=== PATIENT | female | born 1960 | race Caucasian/White ===

== ENCOUNTER 2017-02-23 07:47 | Observation (INO) | payer OTHER ==
[2017-02-23] MEDS ORDERED: ceFAZolin 2 GM/DEXTROSE 100 ML IV ONE (08:19)
[2017-02-23] MEDS ORDERED: LR 1,000 ML IV ONE (08:21)
[2017-02-23 09:09] LABS: % IMMATURE GRANULYOCYTES 0.3 % (0.0-1.1); ABSOLUTE IMMATURE GRANULOCYTES 0.02 10^3/uL (0.00-0.10); ADD DIFF? NO; ADD MORPH? NO; ADD SCAN? NO; ATYPICAL LYMPHOCYTE FLAG 10 (0-99); FRAGMENT RBC FLAG 0 (0-99); HEMATOCRIT 41.6 % (38.0-47.0); HEMOGLOBIN 14.1 g/dL (12.6-16.3); LEFT SHIFT FLG 0 (0-99); LIPEMIA HEMOLYSIS FLAG 90 (0-99); MEAN CELL HEMOGLOBIN 30.1 pg (27.9-34.1); MEAN CELL HEMOGLOBIN CONCENTR. 33.9 g/dL (32.4-36.7); MEAN CELL VOLUME 88.7 fL (81.5-99.8); MEAN PLATELET VOLUME 10.4 fL (8.7-11.7); PLATELET CLUMPS FLAG 0 (0-99); PLATELET COUNT 312 10^3/uL (150-400); RED BLOOD CELL COUNT 4.69 10^6/uL (4.18-5.33); RED CELL DISTRIBUTION WIDTH 12.8 % (11.5-15.2)
[2017-02-23 09:32] LABS: ANION GAP 13 mEq/L (8-16); CALCIUM 9.7 mg/dL (8.5-10.4); CARBON DIOXIDE 25 mEq/l (22-31); CHLORIDE 105 mEq/L (97-110); CREATININE 0.6 mg/dL (0.6-1.0); GLOMERULAR FILTRATION RATE > 60; GLUCOSE 93 mg/dL (70-100); POTASSIUM 3.6 mEq/L (3.5-5.2); SODIUM 143 mEq/L (134-144)
[2017-02-23] MEDS ORDERED: GENTAMICIN SULFATE 80 MG/2 ML VIAL ONE (10:04)
[2017-02-23] MEDS ORDERED: BUPIVACAINE 0.25% 30 ML SDV ONE ×2 (10:04→14:10)
[2017-02-23] MEDS ORDERED: ceFAZolin 1 GM/5 ML SYR ONE (10:04)
[2017-02-23] MEDS ORDERED: METHYLENE BLUE 0.5% 50 MG/10 ML AMP ONE (10:04)
[2017-02-23] MEDS ORDERED: BACITRACIN 50,000 UNITS/10 ML SYR IRR ONE (10:05)
--- NOTE | 2017-02-23 11:17 | PDHPUP ---
History & Physical Update H&P update statement: This history and physical update is based on an assessment of the patient which was completed after admission or registration (within 24 hours), but prior to the surgery/procedure.
[2017-02-23] MEDS ORDERED: MIDAZOLAM 2 MG/2 ML VIAL IVP ONE (11:32)
--- NOTE | 2017-02-23 11:32 | PDANEPAE ---
ANE History of Present Illness b mastectomy ANE Past Medical History - Cardiovascular History Hx Hypertension: Yes Hx Arrhythmias: No Hx Chest Pain: No Hx Coronary Artery / Peripheral Vascular Disease: No Hx CHF / Valvular Disease: No Hx Palpitations: No - Pulmonary History Hx COPD: No Hx Asthma/Reactive Airway Disease: No Hx Recent Upper Respiratory Infection: No Hx Oxygen in Use at Home: No Hx Sleep Apnea: No Sleep Apnea Screening Result - Last Documented: Negative - Neurologic History Hx Cerebrovascular Accident: No Hx Seizures: No Hx Dementia: No Neurologic History Comment: MIGRAINES - Endocrine History Hx Diabetes: No - Renal History Hx Renal Disorders: No - Liver History Hx Hepatic Disorders: No - Neurological & Psychiatric Hx Hx Neurological and Psychiatric Disorders: No - Cancer History Hx Cancer: Yes Cancer History Comment: BREAST - Congenital Disorder History Hx Congenital Disorders: No - GI History Hx Gastrointestinal Disorders: No - Other Health History Other Health History: NEG - Chronic Pain History Chronic Pain: No - Surgical History Prior Surgeries: D&C. BREAST BX ANE Review of Systems - Exercise capacity Exercise capacity: >=4 METS METS (RN): 4 METS - Systems Constitutional: Reports: no symptoms Cardiac: Reports: no symptoms Respiratory: Reports: no symptoms Muscolosketal: Reports: no symptoms Skin: Reports: no symptoms Neurological: Reports: no symptoms ANE Patient History - Allergies Allergies/Adverse Reactions: Penicillins Allergy (Mild, Verified 02/09/17 20:17) Rash amlodipine Allergy (Verified 02/14/17 11:26) DIZZINESS lisinopril Allergy (Verified 02/14/17 11:26) DIZZINESS verapamil Allergy (Verified 02/14/17 11:26) DIZZINESS - Home Medications Home Medications: Frovatriptan Succinate [Frova] 2.5 mg PO DAILY PRN 02/09/17 [Last Taken Unknown] Herbals/Supplements -Info Only 1 ea PO DAILY 02/09/17 [Last Taken Unknown] Hydrochlorothiazide [HCTZ (*)] 12.5 mg PO DAILY 02/09/17 [Last Taken 02/22/17 08 :00] - NPO status NPO Status: no food or drink >8 hours NPO Since - Liquids (Date): 02/22/17 NPO Since - Liquids (Time): 20:00 NPO Since - Solids (Date): 02/22/17 NPO Since - Solids (Time): 20:00 - Anes Hx Anes Hx: no prior problems - Smoking Hx Smoking Status: Never smoked - Alcohol Use Alcohol Use: None - Family Anes Hx Family Anes Hx: none Family Hx Anesthesia Complications: NEG ANE Labs/Vital Signs - Labs Result Diagrams: 02/23/17 08:30 02/23/17 08:30 - Vital Signs Blood Pressure: 171/89 Heart Rate: 84 Respiratory Rate: 16 O2 Sat (%): 94 Height: 160.02 cm Weight: 58.06 kg ANE Physical Exam - Airway Neck exam: FROM Mallampati Score: Class 1 Mouth exam: normal dental/mouth exam - Pulmonary Pulmonary: no respiratory distress - Cardiovascular Cardiovascular: regular rate and rhythym - ASA Status ASA Status: II ANE Anesthesia Plan Anesthesia Plan: general endotracheal anesthesia
[2017-02-23] MEDS ORDERED: MIDAZOLAM 2 MG/2 ML VIAL ONE (11:36)
[2017-02-23] MEDS ORDERED: LIDOCAINE 2% 5 ML SDV ONE (11:37)
[2017-02-23] MEDS ORDERED: ROCURONIUM 50 MG/5 ML VIAL ONE (11:37)
[2017-02-23] MEDS ORDERED: PROPOFOL 200 MG/20 ML VIAL ONE (11:38)
[2017-02-23] MEDS ORDERED: fentaNYL 100 MCG/2 ML INJ ONE ×4 (11:38→15:44)
[2017-02-23] MEDS ORDERED: DEXAMETHASONE 4 MG/ML VIAL ONE ×2 (11:55)
[2017-02-23] MEDS ORDERED: TEMAZEPAM 15 MG CAP PO PRN (13:24)
[2017-02-23] MEDS ORDERED: PROMETHAZINE HCL 25 MG/ML INJ IVP PRN ×2 (13:24→14:43)
[2017-02-23] MEDS ORDERED: LR 1,000 ML IV SCH (13:30)
[2017-02-23] MEDS ORDERED: DIAZEPAM 5 MG TAB PO PRN (14:34)
[2017-02-23] MEDS ORDERED: FROVATRIPTAN SUCCINATE 2.5 MG PO PRN (14:35)
[2017-02-23] MEDS ORDERED: HYDROmorphONE/DILAUDID 1 MG/ML SYR IVP PRN (14:43)
[2017-02-23] MEDS ORDERED: ONDANSETRON 4 MG/2 ML VIAL IVP PRN (14:43)
[2017-02-23] MEDS ORDERED: fentaNYL 100 MCG/2 ML INJ IVP PRN (14:43)
[2017-02-23] MEDS ORDERED: HYDROCODONE/APAP 5/325 TAB PO PRN (14:43)
[2017-02-23] MEDS ORDERED: MEPERIDINE 25 MG/ML SYR IVP PRN (14:43)
[2017-02-23] MEDS ORDERED: NALOXONE HCL 0.4 MG/ML INJ IVP PRN (14:43)
[2017-02-23] MEDS ORDERED: ceFAZolin 1 GM VIAL ONE ×2 (14:47)
--- NOTE | 2017-02-23 14:58 | POSTOPPROG ---
Post Op Note Date of Operation: 02/23/17 Surgeon: Shaun Pace (, FACS) Supervisor Multifocal Lens: Jennifer Hook RN-FA Anesthesiologist: Torres Lester MD Anesthesia: GET(General Endotracheal) Pre-op Diagnosis: left breast lobular CA Post-op Diagnosis: same Procedure: bilateral total mastectomy, sentinel node mapping and superficial ALND Findings: 4/4 sentinel nodes negative-right, 2/2 sentinel nodes negative-left Inf/Abcess present in the surg proc area at time of surgery?: No Complications: none
--- NOTE | 2017-02-23 15:25 | POSTANESTH ---
Post Anesthetic Evaluation Cardiovascular Status: Normal, Stable Respiratory Status: Normal, Stable Level of Consciousness/Mental Status: Can Participate in Eval Pain Control: Adequate, Prn Tx Ordered Nausea/Vomiting Control: Adequate, Prn Tx Ordered Complications Possibly Related to Anesthesia: None Noted
[2017-02-23] MEDS: fentaNYL 100 MCG/2 ML INJ IVP PRN ×2 (15:46→15:54)
[2017-02-23] MEDS ORDERED: HYDROmorphONE/DILAUDID 1 MG/ML SYR ONE (16:07)
[2017-02-23] MEDS: HYDROmorphONE/DILAUDID 1 MG/ML SYR IVP PRN ×6 (16:08→22:53)
[2017-02-23] MEDS: ONDANSETRON 4 MG/2 ML VIAL IVP PRN (19:21)
[2017-02-23] MEDS: HYDROCODONE/APAP 5/325 TAB PO PRN (21:38)
[2017-02-23] MEDS ORDERED: ceFAZolin 2 GM/DEXTROSE 100 ML IV SCH (23:00)
[2017-02-23] MEDS: ceFAZolin 2 GM/DEXTROSE 100 ML IV SCH (23:10)
[2017-02-24] MEDS: HYDROCODONE/APAP 5/325 TAB PO PRN ×4 (01:44→12:53)
[2017-02-24] MEDS: ceFAZolin 2 GM/DEXTROSE 100 ML IV SCH (06:04)
[2017-02-24 06:16] LABS: % IMMATURE GRANULYOCYTES 0.4 % (0.0-1.1); ABSOLUTE IMMATURE GRANULOCYTES 0.06 10^3/uL (0.00-0.10); ADD DIFF? NO; ADD MORPH? NO; ADD SCAN? NO; ATYPICAL LYMPHOCYTE FLAG 0 (0-99); FRAGMENT RBC FLAG 0 (0-99); HEMATOCRIT 37.1 % (38.0-47.0); HEMOGLOBIN 12.5 g/dL (12.6-16.3); LEFT SHIFT FLG 0 (0-99); LIPEMIA HEMOLYSIS FLAG 80 (0-99); MEAN CELL HEMOGLOBIN CONCENTR. 33.7 g/dL (32.4-36.7); MEAN PLATELET VOLUME 10.2 fL (8.7-11.7); PLATELET CLUMPS FLAG 0 (0-99); PLATELET COUNT 320 10^3/uL (150-400); RED BLOOD CELL COUNT 4.17 10^6/uL (4.18-5.33)
--- NOTE | 2017-02-24 06:27 | GOP ---
[f rep st] OPERATIVE REPORT DATE OF OPERATION: 02/23/2017 SURGEON: Addis Simon Jr., MD [place] SPECIALIST: Ralph Florentino CST, by surgeon request (skilled religious assistant was necessary due to the technical complexity of the case and desire to minimize patient anesthesia time). ANESTHESIA: Patient had general inhalational anesthetic. ANESTHESIOLOGIST: Dr. Torres Lester. PREOPERATIVE DIAGNOSIS: Left breast cancer. POSTOPERATIVE DIAGNOSIS: Left breast cancer. PROCEDURE PERFORMED: Immediate bilateral breast reconstruction utilizing tissue expanders and human dermal allograft. FINDINGS: ESTIMATED BLOOD LOSS: During reconstruction was 30 cc. INDICATIONS: The patient is a delightful young woman referred from Dr. Shaun Pace, after a left b reast cancer diagnosis. She elected to undergo bilateral mastectomies as part of her treatment and was deemed an excellent candidate for staged reconstruction, utilizing tissue expanders, implants an d autologous fat grafting. She came to the operating room in conjunction with Dr. Pace today for th e mastectomy and placement of tissue expanders. DESCRIPTION OF PROCEDURE: After the risks and benefits of the procedure were explained to the patie nt, highlighting bleeding, infection, potential need to remove tissue chief controller center, asymmetry, discomfor t, damage to the vessels or nerves, and need for additional procedures, formal operative consent was obtained. She was taken to the operating room, by Dr. Pace, where uncomplicated bilateral total ma stectomies with bilateral negative sentinel lymph node mapping was performed. At the completion of the mastectomy portion the procedure, the patient was redraped with fresh towels, fresh instrumentat ion, electrocautery and suction were also employed. Procedure began by irrigating the pockets copiously with normal saline. Meticulous hemostasis was a ssured. The pockets were then rinsed with triple antibiotic saline. A plane was then developed demetrio eath the pectoralis major muscle, beginning with the division of the inferior medial origin of the m uscle from the chest wall. The pocket proceeded beneath the serratus anterior muscle until the foot print of the tissue chief controller center had been completely dissected. Identical procedure was performed on th e contralateral side. The pockets were then irrigated with triple antibiotic saline. Hemostasis ag ain assured. Tissue expanders, Allergan 133-13-T550 cc devices were thoroughly tested, evacuated of air, and filled with 150 cc of injectable saline. They were then placed in the submuscular pocket and sutured down to the chest wall in the correct anatomic position, using 2-0 PDS suture. Two shee ts of AlloDerm acellular dermis graft were triple rinsed in normal saline, soaked in triple antibiot ic saline, and then used to reconstruct the inferior pole of both breasts. They were trimmed to fit the inferior pole and sutured into place using 2-0 Vicryl suture. The pockets were irrigated a fin al time with triple antibiotic saline. Hemostasis again assured a final time, 15 round drains were placed and the skin edges were examined. They were felt to be healthy and viable. Two-layer closur e was performed. An additional 200 cc of saline was instilled into each tissue chief controller center, using a tr ansdermal technique. This filled the soft tissue envelope without undue stress or tension on the ma stectomy skin flaps. The drains were placed to bulb suction. She had bacitracin, Xeroform, 4x4s, a pplied to her incisions with a compressive bra. She was extubated in the operating room, taken to [facility] recovery room, awake and in stable condition. TISSUE EXPANDERS: Allergan 133 [id number]-13-T550 cc devices filled to 350 cc bilaterally. DRAINS: Two DINORA drains were placed. COMPLICATIONS: No complications. /[id number]/MODL
[2017-02-24 06:37] LABS: ANION GAP 9 mEq/L (8-16); CALCIUM 9.5 mg/dL (8.5-10.4); CARBON DIOXIDE 25 mEq/l (22-31); CHLORIDE 105 mEq/L (97-110); CREATININE 0.6 mg/dL (0.6-1.0); GLOMERULAR FILTRATION RATE > 60; GLUCOSE 110 mg/dL (70-100); POTASSIUM 4.1 mEq/L (3.5-5.2); SODIUM 139 mEq/L (134-144)
--- NOTE | 2017-02-24 06:42 | GOP ---
[f rep st] OPERATIVE REPORT DATE OF OPERATION: SURGEON: Shaun Pace MD, FACS FAMILY SERVICE ASSISTANT: Yousif Hook RN-FA ANESTHESIA: General endotracheal. ANESTHESIOLOGIST: Torres Lester MD. PREOPERATIVE DIAGNOSIS: Left breast lobular carcinoma. POSTOPERATIVE DIAGNOSIS: Left breast lobular carcinoma. PROCEDURE PERFORMED: Bilateral total mastectomy with sentinel lymph node mapping and superficial axillary lymph node dissection. FINDINGS: Four sentinel lymph nodes on the right and 2 sentinel lymph nodes on the left negative for evidence of metastatic malignancy. Permanent section is pending. Frozen section of the left supra-areolar skin margin was negative intraoperatively. SPECIMENS: Subsequent frozen section on the left side revealed 2 sentinel nodes that were negative for evidence of metastatic malignancy and the skin cephalad to the areolar border was also checked by frozen section and there was no evidence of malignancy. ESTIMATED BLOOD LOSS: In total for the bilateral mastectomies, approximately 100 mL. DESCRIPTION OF PROCEDURE: After informed consent was obtained, the patient was brought to the operating room and placed under general anesthesia. Both breasts were prepped and draped in usual fashion. Before proceeding, a time- out identification of the patient was performed. The right mastectomy was performed first as follows: Utilizing a transversely oriented circumareolar incision, the skin was incised with the scalpel. Flaps were elevated with cautery dissection cephalad to the infraclavicular fossa, medially to the sternal border, inferiorly to the inframammary fold, and laterally to the latissimus border. The breast was then from the underlying pectoralis. Hemostasis was secured with cautery and hemoclips. The lateral dissection was carried out from the pectoral border posteriorly along the serratus to the latissimus border and cephalad to the axilla. Subsequently , the sentinel nodes were identified using the handheld gamma probe. There were 3 areas of increased activity that were identified, which contained normal- appearing lymph nodes clinically. These were excised and submitted for frozen section. While we were waiting for the results, the breast was amputated from the lower axilla and hemostasis secured with hemoclips and cautery. Specimen was tagged for orientation and submitted for permanent section. Subsequently, Dr. Nova reported 4 sentinel nodes that were negative by frozen section. Hemostasis appeared secure within the wound, which was then covered with a moistened laparotomy sponge in preparation for reconstruction. Turning to the left side, the patient had a subareolar tumor in the upper inner quadrant. The skin incision was made with the scalpel cephalad to the area of the prior transdermal biopsy. The circumareolar incision was transversely oriented across the chest wall encompassing the entire nipple-areolar complex and some of the supra-areolar skin. Using cautery dissection, flaps were elevated cephalad to the infraclavicular fossa, medially to the sternal border, inferiorly to the inframammary fold, and laterally to the latissimus border. The breast tissue was from the underlying pectoralis using cautery dissection including the pectoralis fascia. As the tissue was dissected off the pectoralis border posteriorly to the latissimus border along the course of the serratus, hemostasis was secured with cautery and hemoclips. Dissection was then carried out along the latissimus border cephalad to the axilla and the axillary fat pad identified. [place] nodes on the left side included 2 nodes that met criteria. These were approximately 1.5 cm in diameter and were individually submitted for frozen and permanent section after lymphovascular structures were hemoclipped and divided. Three additional non-sentinel nodes were removed in the process and these were submitted for permanent section. The breast was then amputated away from the lower axilla and hemostasis secured with hemoclips and cautery. The wound was inspected for hemostasis, which appeared secure. Dr. Simon then scrubbed in to perform immediate reconstruction to be dictated as a separate operative report. COMPLICATIONS: None. Copy requested to: Dr. Vijay Sanches /[id number]/MODL MTDD
[2017-02-24] MEDS ORDERED: HYDROCHLOROTHIAZIDE 25 MG TAB PO SCH (09:00)
[2017-02-24] MEDS ORDERED: ENOXAPARIN 30 MG/0.3 ML SYR SC SCH (09:00)
[2017-02-24] MEDS ORDERED: ENOXAPARIN 40 MG/0.4 ML SYR SC SCH (09:00)
[2017-02-24] MEDS ORDERED: HYDROCHLOROTHIAZIDE 12.5 MG CAP PO SCH (09:15)
[2017-02-24] MEDS: ONDANSETRON 4 MG/2 ML VIAL IVP PRN (09:36)
[2017-02-24] MEDS ORDERED: IBUPROFEN 600 MG TAB PO PRN (10:49)
[2017-02-24] MEDS ORDERED: SENNOSIDES/DOCUSATE SODIUM TAB PO SCH (11:00)
--- NOTE | 2017-02-24 11:08 | PDDCSUM ---
Discharge Summary Discharge Summary: DOA: 02/23/17 DOD: 02/24/17 DC Dx: Left breast cancer Procedures: bilateral total mastectomy + sentinel node mapping/superficial ALND + immediate reconstruction Course: For details of history and physical please refer to pre-op note Jennifer was admitted for bilateral mastectomy + reconstruction. Surgery was uneventful and 4/4 sentinel nodes on the right and 2/2 sentinel nodes on the left were negative for metastatic disease by frozen section. Final pathology is pending. Post op she had mild pain and nausea and tolerated advance in her diet. On the morning after surgery she was afebrile, ambulatory and her surgical sites appeared uncomplicated. She was discharged home with instructions in drain care and will follow up with Dr. Simon and myself in the coming week. DC meds: per medication reconciliation Pavithra Pace MD, FACS
[2017-02-24 15:33] VITALS: BP 156/75; PULSE 75; RESP 16; TEMP 98.4; O2SAT 90
== END 2017-02-24 15:00 | disposition home or self-care (01) ==
LOC: F3E 07:47 → FOB 17:37
PROVIDERS: ADMIT Surgery; ATTEND Surgery
PROC: 07B60ZZ Excision of Left Axillary Lymphatic, Open Approach (ICD-10-PCS; principal; 2017-02-23 11:00)
PROC: 0HTV0ZZ Resection of Bilateral Breast, Open Approach (ICD-10-PCS; principal; 2017-02-23 11:00)
PROC: 0HHV0NZ Insertion of Tissue Expander into Bilateral Breast, Open Approach (ICD-10-PCS; 2017-02-23 11:00)
PROC: 3E0W3KZ Introduction of Other Diagnostic Substance into Lymphatics, Percutaneous Approach (ICD-10-PCS; 2017-02-23 11:00)
DX: C50.812 Malignant neoplasm of overlapping sites of left female breast (principal); Z17.0 Estrogen receptor positive status [ER+]; I10 Essential (primary) hypertension; Z80.3 Family history of malignant neoplasm of breast
CPT/HCPCS: 19303; 19357; 38500; 78195; 97161; 97165; A9520; G0378; J0690; J1100; J1170; J1650; J2250; J2405; J2704; J3010; Q4116; Q9968

== ENCOUNTER → 2018-05-27 | Outpatient (CLI) | payer OTHER | LOC: BRMIMAGING 10:21 | PROVIDERS: ATTEND Nurse Practitioner | DX: R22.2 Localized swelling, mass and lump, trunk (principal); Z85.3 Personal history of malignant neoplasm of breast | CPT/HCPCS: 76641-PO ==